=== PATIENT | female | born 1965 | race Caucasian/White ===

== ENCOUNTER 2022-03-19 14:57 | Inpatient (IN) | payer MEDICAID ==
[~2022-03-19] VITALS: Ht 154.9 cm; Wt 100.0 kg
[~2022-03-19 14:57] MED LIST: amiodarone 50MG/ML inj IV ONE
[2022-03-19] MEDS ORDERED: ringers solution, lacted 1,000 ML IV ONE (15:20)
[2022-03-19 15:42] LABS: BASOPHILS % (AUTO) 0.3 % (0-1); EOSINOPHILS % (AUTO) 0.2 % (0-6); HEMATOCRIT 42.9 % (35.0-45.0); HEMOGLOBIN 13.8 g/dl (12.0-16.0); LYMPHOCYTES # (AUTO) 2.1 X10'3 (1.1-4.8); LYMPHOCYTES % (AUTO) 23.3 % (21-51); MEAN CORPUSCULAR HEMOGLOBIN 27.9 PG (27.0-31.0); MEAN CORPUSCULAR HGB CONC 32.1 g/dL (33.0-36.5); MEAN CORPUSCULAR VOLUME 86.7 FL (78-98); MEAN PLATELET VOLUME 9.8 FL (7.4-10.4); MONOCYTES # (AUTO) 0.6 X10'3 (0-0.9); MONOCYTES % (AUTO) 6.8 % (2-12); NEUTROPHILS # (AUTO) 6.2 X10'3 (1.8-7.7); NEUTROPHILS % (AUTO) 69.4 % (42-75); PLATELET COUNT 179 X10'3 (140-440); RED BLOOD COUNT 4.95 X10'6 (4.20-5.60); RED CELL DISTRIBUTION WIDTH 13.5 % (11.5-14.5)
[2022-03-19 15:45] LABS: APTT 24 SECONDS (22-32); D-DIMER 0.26 MG/L FEU (0-0.50)
[2022-03-19 15:48] LABS: ALANINE AMINOTRANSFERASE 63 U/L (12-78); ALBUMIN 3.9 G/DL (3.4-5.0); ALBUMIN/GLOBULIN RATIO 1.1 (1.1-1.5); ALKALINE PHOSPHATASE 70 IU/L (46-116); ANION GAP 11 (8-16); ASPARTATE AMINO TRANSFERASE 25 U/L (10-37); BILIRUBIN,TOTAL 0.6 MG/DL (0.1-1.0); BLOOD UREA NITROGEN 15 MG/DL (7-18); BUN/CREATININE RATIO 18.1 (6.6-38.0); CALCIUM 8.9 MG/DL (8.5-10.1); CHLORIDE 100 MMOL/L (99-107); CREATININE 0.83 MG/DL (0.40-0.90); GLUCOSE 333 MG/DL (70-104); POTASSIUM 3.9 MMOL/L (3.5-5.1); SODIUM 137 MMOL/L (135-145); TOTAL CARBON DIOXIDE 26.5 MMOL/L (24-32); TOTAL PROTEIN 7.4 G/DL (6.4-8.2); eGFR 71 ML/MIN
[2022-03-19 15:58] LABS: MAGNESIUM 1.7 MG/DL (1.5-2.4)
[2022-03-19] MEDS ORDERED: diltiazem 5mg/ml 5ml inj. IV ONE (16:15)
[2022-03-19] MEDS ORDERED: diltiazem 30mg tablet PO ONE (17:15)
[2022-03-19] MEDS ORDERED: mag hydrox/Alum hydrox/simeth 30ml oral suspension PO PRN (17:40)
[2022-03-19] MEDS ORDERED: acetaminophen 325mg tablet PO PRN (17:40)
[2022-03-19] MEDS ORDERED: magnesium hydroxide 30ml (MOM) UD suspension PO PRN (17:40)
[2022-03-19] MEDS ORDERED: potassium Cl 20 mEq SR tablet PO PRN ×2 (17:40)
[2022-03-19] MEDS ORDERED: magnesium Cl slow-release 64mg tablet PO PRN (17:40)
[2022-03-19] MEDS ORDERED: PERFLUTREN PROTEIN-A MICROSPHR (Optison) 0.22 MG/ML 3ML VIAL IV ONE (17:40)
[2022-03-19] MEDS ORDERED: ondansetron/PF 4mg/2ml inj IV PRN (17:40)
[2022-03-19] MEDS ORDERED: magnesium 4gm in 100ml NS 100 ML IV PRN (17:40)
[2022-03-19] MEDS ORDERED: potassium Cl 40MEQ/1/2NS 520ml 520 ML IV PRN (17:40)
[2022-03-19] MEDS ORDERED: ASPI-1265 PO (17:52)
[2022-03-19] MEDS ORDERED: MULT-1085 PO (17:52)
[2022-03-19] MEDS: diltiazem-NS 100mg/100ml 100 ML IV SCH (18:00)
[2022-03-19] MEDS: normal saline 1000ml 1,000 ML IV SCH (18:00)
[2022-03-19 18:21] LABS: CLARITY,URINE SLIGHTLY CLOUDY (Clear); COLOR,URINE YELLOW (Yellow); GLUCOSE, URINE >=1000 mg/dl (Neg); KETONES,URINE 40 mg/dl (Neg); LEUKOCYTE ESTERASE ,URINE NEGATIVE (Neg); NITRITES, URINE NEGATIVE (Neg); OCCULT BLOOD,URINE NEGATIVE (Neg); PH,URINE 5.5 (4.8-8.0); PROTEIN,URINE NEGATIVE (Neg); UROBILINOGEN,URINE 0.2 E.U/dL (0.2-1.0)
[2022-03-19 18:30] LABS: UA COLLECTION TYPE CLN CATCH MIDSTREAM
[2022-03-19 18:32] LABS: BACTERIA,URINE FEW /HPF (Neg); MUCUS STRANDS FEW /LPF (Neg); SQUAMOUS EPITHELIAL CELL,UR FEW /LPF (FEW)
[2022-03-19 18:33] LABS: TRANSITIONAL EPI CELLS,URINE FEW /HPF; URINE AMPHETAMINE SCREEN NEGATIVE (Neg); URINE BARBITUATE SCREEN NEGATIVE (Neg); URINE BENZODIAZEPINES SCREEN NEGATIVE (Neg); URINE CANNABINOID SCREEN POSITIVE (Neg); URINE COCAINE SCREEN NEGATIVE (Neg); URINE METHADONE SCREEN NEGATIVE (Neg); URINE OPIATE SCREEN NEGATIVE (Neg); URINE PHENCYCLIDINE SCREEN NEGATIVE (Neg); YEAST FEW /HPF (NEGATIVE)
[2022-03-19] MEDS: K and/or MAG REPLACEMENT MC SCH (19:45)
[2022-03-19] MEDS ORDERED: apixaban 5mg tablet PO SCH (20:00)
[2022-03-19] MEDS: docusate sod 100mg capsule PO SCH (20:00)
[2022-03-19] MEDS: enoxaparin 100mg/ml syringe SUBCUT SCH (20:21)
[2022-03-20] VITALS (16 sets, daily range): BP systolic 93–145; BP diastolic 50–79
[2022-03-20 02:59] LABS: BASOPHILS # (AUTO) 0.1 X10'3 (0-0.2); BASOPHILS % (AUTO) 0.9 % (0-1); EOSINOPHILS % (AUTO) 0.6 % (0-6); HEMOGLOBIN 11.8 g/dl (12.0-16.0); LYMPHOCYTES # (AUTO) 2.3 X10'3 (1.1-4.8); LYMPHOCYTES % (AUTO) 28.9 % (21-51); MEAN CORPUSCULAR HGB CONC 33.6 g/dL (33.0-36.5); MEAN CORPUSCULAR VOLUME 86.3 FL (78-98); MEAN PLATELET VOLUME 9.3 FL (7.4-10.4); MONOCYTES # (AUTO) 0.6 X10'3 (0-0.9); MONOCYTES % (AUTO) 7.8 % (2-12); NEUTROPHILS # (AUTO) 4.8 X10'3 (1.8-7.7); NEUTROPHILS % (AUTO) 61.8 % (42-75); PLATELET COUNT 158 X10'3 (140-440); RED BLOOD COUNT 4.06 X10'6 (4.20-5.60); RED CELL DISTRIBUTION WIDTH 13.6 % (11.5-14.5); WHITE BLOOD COUNT 7.8 X10'3 (4.5-11.0)
[2022-03-20 03:10] LABS: ALBUMIN 2.9 G/DL (3.4-5.0); ANION GAP 8 (8-16); BLOOD UREA NITROGEN 10 MG/DL (7-18); BUN/CREATININE RATIO 15.9 (6.6-38.0); CALCIUM 7.9 MG/DL (8.5-10.1); CHLORIDE 106 MMOL/L (99-107); CREATININE 0.63 MG/DL (0.40-0.90); GLUCOSE 232 MG/DL (70-104); MAGNESIUM 1.6 MG/DL (1.5-2.4); SODIUM 141 MMOL/L (135-145); TOTAL CARBON DIOXIDE 26.6 MMOL/L (24-32); eGFR > 90 ML/MIN
[2022-03-20] MEDS: normal saline 1000ml 1,000 ML IV SCH ×3 (03:58→21:08)
[2022-03-20] MEDS: K and/or MAG REPLACEMENT MC SCH ×2 (08:00→19:55)
[2022-03-20] MEDS: docusate sod 100mg capsule PO SCH ×2 (08:00→20:02)
[2022-03-20] MEDS: enoxaparin 100mg/ml syringe SUBCUT SCH ×2 (08:19→19:58)
[2022-03-20] MEDS ORDERED: regadenoson 0.4mg/5ml syringe IV PRN (08:40)
[2022-03-20] MEDS ORDERED: nitroGLYCERIN 0.4mg SUBLingual tab SL PRN (08:40)
[2022-03-20] MEDS ORDERED: metoprolol tartrate 1mg/ml inj IV PRN (08:40)
[2022-03-20] MEDS ORDERED: aminophylline 500mg/20ml vial IV PRN (08:40)
--- NOTE | 2022-03-20 11:24 | NUR ---
Nutrition consult regarding pt wt loss: Pt has hx of gastric bypass. She states she had a RYGB about 15 years ago. She eats smaller more frequent meals now, which is what is recommend for gastric bypass. She mentions that her wt loss stalled a bit the last couple of years though she started to lose wt again this past year. She states that she eats fine and feels great. No concern for malnutrition at this time. D/W RN recommendation for MVI if MD agreeable. Addendum: 03/20/22 at [address] Amended: Links added.
[2022-03-20] MEDS ORDERED: diltiazem 30mg tablet PO ONE (11:40)
[2022-03-20] MEDS ORDERED: furosemide 40mg/4ml inj IV ONE (11:45)
[2022-03-20 11:50] LABS: HEMOGLOBIN A1C 11.4 % (4.5-6.2)
--- NOTE | 2022-03-20 12:46 | NUR ---
mariela GARG paged with elevated troponin [id number]
--- NOTE | 2022-03-20 13:06 | NUR ---
Noted pt w/ hx of DM A1c 11.4 per EMR. Provided pt w/ written and verbal DM ed w/ RD contact info. Addendum: 03/20/22 at [address] Amended: Links added.
[2022-03-20] MEDS: diltiazem-NS 100mg/100ml 100 ML IV SCH ×2 (13:30→21:09)
[2022-03-20] MEDS ORDERED: diltiazem 30mg tablet PO SCH (14:00)
[2022-03-20] MEDS ORDERED: fentaNYL/PF 50MCG/1 ML 2ML syringe ONE (14:12)
[2022-03-20] MEDS ORDERED: verapamil 2.5 mg/ml inj IV ONE ×2 (14:12→15:09)
[2022-03-20] MEDS ORDERED: midazolam 1 mg/ML 2ml injection ONE ×2 (14:12→15:26)
[2022-03-20] MEDS ORDERED: nitroGLYCERIN-Tridil 50MG/D5W 250 ML IV ONE (14:12)
[2022-03-20] MEDS ORDERED: LIDOcaine 1% (10mg/ml) 2ml vial ONE (14:13)
[2022-03-20] MEDS ORDERED: heparin 1,000unit/ml 10ml vial 10 ML ONE (14:13)
[2022-03-20] MEDS ORDERED: iohexol 350MG/ML 100ml bottle IV ONE ×2 (14:13→15:14)
[2022-03-20] MEDS ORDERED: iohexol 350 MG/ML 50ML vial IV ONE ×2 (14:13→16:10)
[2022-03-20] MEDS ORDERED: metoprolol tartrate 1mg/ml inj IV ONE (15:06)
[2022-03-20] MEDS ORDERED: HEPARIN SOD,PORK IN 0.45% NACL 250 ML IV ONE (15:17)
[2022-03-20] MEDS ORDERED: LIDOcaine 1% 30ml preserv. free vial ONE (15:26)
[2022-03-20] MEDS ORDERED: clopidogrel 300mg tablet ONE (16:18)
[2022-03-20] MEDS ORDERED: normal saline 1000ml 1,000 ML IV SCH (17:30)
[2022-03-20] MEDS ORDERED: heparin 10,000 units/1 ML INJ IV PRN (17:55)
[2022-03-20] MEDS ORDERED: heparin 25,000 UNIT/250ml bag 250 ML IV PRN (17:55)
[2022-03-20] MEDS ORDERED: heparin 10,000 units/1 ML INJ IV ONE (17:55)
[2022-03-20] MEDS: aspirin 81mg tab.chew PO SCH (19:20)
[2022-03-20] MEDS: carVEDilol 12.5mg tablet PO SCH (20:02)
[2022-03-20] MEDS ORDERED: MESSAGE TO PHARMACY PO ONE (21:40)
[2022-03-20] MEDS ORDERED: glucagon, human recombinant 1mg kit SUBCUT PRN (21:40)
[2022-03-20] MEDS ORDERED: dextrose 50%-water 50ml dispensing syringe IV PRN ×2 (21:40)
[2022-03-20] MEDS ORDERED: DEXTROSE 15 GM of carb/4 tabs (each vial/BOTTLE has 4 tablets) PO PRN ×2 (21:40)
[2022-03-20] MEDS: insulin Lispro (HumaLOG) vial - multi-dose SQ SCH (21:44)
[2022-03-20] MEDS: insulin glargine (Lantus) pen - multi-dose SQ SCH (21:45)
[2022-03-21] VITALS (8 sets, daily range): BP systolic 93–146; BP diastolic 41–62
[2022-03-21] MEDS ORDERED: morphine 2 MG/ML inj. syringe IV PRN (00:25)
[2022-03-21] MEDS ORDERED: HYDROcodone/acetaminophen 5mg/325mg tablet PO PRN (00:25)
[2022-03-21 06:46] LABS: BASOPHILS % (AUTO) 0.5 % (0-1); EOSINOPHILS % (AUTO) 0.4 % (0-6); HEMATOCRIT 32.4 % (35.0-45.0); HEMOGLOBIN 10.9 g/dl (12.0-16.0); LYMPHOCYTES # (AUTO) 1.4 X10'3 (1.1-4.8); LYMPHOCYTES % (AUTO) 18.2 % (21-51); MEAN CORPUSCULAR HEMOGLOBIN 28.9 PG (27.0-31.0); MEAN CORPUSCULAR HGB CONC 33.5 g/dL (33.0-36.5); MEAN CORPUSCULAR VOLUME 86.1 FL (78-98); MEAN PLATELET VOLUME 9.1 FL (7.4-10.4); MONOCYTES # (AUTO) 0.7 X10'3 (0-0.9); MONOCYTES % (AUTO) 8.6 % (2-12); NEUTROPHILS # (AUTO) 5.7 X10'3 (1.8-7.7); NEUTROPHILS % (AUTO) 72.3 % (42-75); PLATELET COUNT 143 X10'3 (140-440); RED BLOOD COUNT 3.77 X10'6 (4.20-5.60); RED CELL DISTRIBUTION WIDTH 13.3 % (11.5-14.5); WHITE BLOOD COUNT 7.9 X10'3 (4.5-11.0)
[2022-03-21 06:48] LABS: APTT 28 SECONDS (22-32)
[2022-03-21 07:21] LABS: ALBUMIN 2.7 G/DL (3.4-5.0); ANION GAP 9 (8-16); BLOOD UREA NITROGEN 8 MG/DL (7-18); CALCIUM 7.9 MG/DL (8.5-10.1); CHLORIDE 105 MMOL/L (99-107); CHOL/HDL RATIO 4.2 (0.00-4.99); CHOLESTEROL 131 MG/DL (0-200); CREATININE 0.57 MG/DL (0.40-0.90); GLUCOSE 218 MG/DL (70-104); HDL CHOLESTEROL 31 MG/DL (35-60); LDL CHOLESTEROL 89 MG/DL (50-100); MAGNESIUM 1.5 MG/DL (1.5-2.4); POTASSIUM 3.5 MMOL/L (3.5-5.1); SODIUM 137 MMOL/L (135-145); TOTAL CARBON DIOXIDE 22.7 MMOL/L (24-32); TRIGLYCERIDES 92 MG/DL (20-135); eGFR > 90 ML/MIN
[2022-03-21] MEDS ORDERED: metoprolol succinate 25mg (24-HOUR) SR. Tablet PO SCH (08:00)
[2022-03-21] MEDS ORDERED: aspirin 81mg tab.chew PO SCH (08:00)
[2022-03-21] MEDS: K and/or MAG REPLACEMENT MC SCH ×2 (08:00→19:48)
[2022-03-21] MEDS ORDERED: lisinopril 5mg tablet PO SCH (08:00)
[2022-03-21] MEDS: aspirin 81mg tab.chew PO SCH (08:31)
[2022-03-21] MEDS: clopidogrel 75mg tablet PO SCH (08:32)
[2022-03-21] MEDS: apixaban 5mg tablet PO SCH ×2 (08:32→19:56)
[2022-03-21] MEDS: carVEDilol 12.5mg tablet PO SCH ×2 (08:34→19:56)
[2022-03-21] MEDS: atorvastatin 20mg tablet PO SCH (08:34)
[2022-03-21] MEDS: multivitamins, therapeutics tablet PO SCH (08:34)
[2022-03-21] MEDS: docusate sod 100mg capsule PO SCH ×2 (08:35→19:45)
[2022-03-21] MEDS: insulin Lispro (HumaLOG) vial - multi-dose SQ SCH ×3 (08:48→20:27)
[2022-03-21] MEDS: normal saline 1000ml 1,000 ML IV SCH ×2 (10:11→19:55)
[2022-03-21] MEDS ORDERED: digoxin 250mcg/ml 2ml ampule IV ONE ×2 (13:25→17:00)
--- NOTE | 2022-03-21 18:28 | NUR ---
Patient report given, questions answered & plan of care reviewed with Compa DECKER.
[2022-03-21] MEDS: carvedilol 6.25mg tablet PO SCH (19:55)
[2022-03-21] MEDS: insulin glargine (Lantus) pen - multi-dose SQ SCH (21:52)
[2022-03-22] VITALS (17 sets, daily range): BP systolic 83–143; BP diastolic 44–76
[2022-03-22] MEDS: normal saline 1000ml 1,000 ML IV SCH ×3 (05:54→23:43)
[2022-03-22 07:35] LABS: BASOPHILS % (AUTO) 0.2 % (0-1); EOSINOPHILS % (AUTO) 0.4 % (0-6); HEMATOCRIT 31.6 % (35.0-45.0); HEMOGLOBIN 10.6 g/dl (12.0-16.0); LYMPHOCYTES # (AUTO) 1.5 X10'3 (1.1-4.8); LYMPHOCYTES % (AUTO) 19.6 % (21-51); MEAN CORPUSCULAR HEMOGLOBIN 28.8 PG (27.0-31.0); MEAN CORPUSCULAR HGB CONC 33.4 g/dL (33.0-36.5); MEAN CORPUSCULAR VOLUME 86.2 FL (78-98); MEAN PLATELET VOLUME 8.9 FL (7.4-10.4); MONOCYTES # (AUTO) 0.7 X10'3 (0-0.9); MONOCYTES % (AUTO) 9.5 % (2-12); NEUTROPHILS # (AUTO) 5.2 X10'3 (1.8-7.7); NEUTROPHILS % (AUTO) 70.3 % (42-75); PLATELET COUNT 128 X10'3 (140-440); RED BLOOD COUNT 3.66 X10'6 (4.20-5.60); RED CELL DISTRIBUTION WIDTH 13.5 % (11.5-14.5); WHITE BLOOD COUNT 7.5 X10'3 (4.5-11.0)
[2022-03-22 07:55] LABS: ALBUMIN 2.4 G/DL (3.4-5.0); ANION GAP 6 (8-16); BLOOD UREA NITROGEN 7 MG/DL (7-18); BUN/CREATININE RATIO 11.9 (6.6-38.0); CALCIUM 7.8 MG/DL (8.5-10.1); CHLORIDE 108 MMOL/L (99-107); CREATININE 0.59 MG/DL (0.40-0.90); GLUCOSE 145 MG/DL (70-104); MAGNESIUM 1.6 MG/DL (1.5-2.4); POTASSIUM 3.3 MMOL/L (3.5-5.1); SODIUM 139 MMOL/L (135-145); TOTAL CARBON DIOXIDE 24.6 MMOL/L (24-32); eGFR > 90 ML/MIN
[2022-03-22] MEDS: docusate sod 100mg capsule PO SCH ×2 (08:00→19:37)
[2022-03-22] MEDS: K and/or MAG REPLACEMENT MC SCH ×2 (08:00→20:06)
[2022-03-22] MEDS: multivitamins, therapeutics tablet PO SCH (11:16)
[2022-03-22] MEDS: aspirin 81mg tab.chew PO SCH (11:16)
[2022-03-22] MEDS: apixaban 5mg tablet PO SCH ×2 (11:17→19:37)
[2022-03-22] MEDS: lisinopril 2.5mg tablet PO SCH (11:17)
[2022-03-22] MEDS: carVEDilol 12.5mg tablet PO SCH (11:18)
[2022-03-22] MEDS: carvedilol 6.25mg tablet PO SCH (11:18)
[2022-03-22] MEDS: atorvastatin 20mg tablet PO SCH (11:18)
[2022-03-22] MEDS: clopidogrel 75mg tablet PO SCH (11:19)
[2022-03-22] MEDS: insulin Lispro (HumaLOG) vial - multi-dose SQ SCH ×2 (13:53→19:41)
[2022-03-22] MEDS ORDERED: MIDAZolam 1mg/ml 10ml vial IV ONE (16:05)
[2022-03-22] MEDS ORDERED: morphine 10mg/ml inj. IV ONE (16:05)
[2022-03-22] MEDS ORDERED: amiodarone 50MG/ML inj IV ONE (16:20)
--- NOTE | 2022-03-22 17:10 | NUR ---
procedure done in pt room Addendum: 03/22/22 at 1714 by Mario Lucio RN Amended: Links added.
[2022-03-22] MEDS ORDERED: sotalol 80mg tablet PO ONE (17:38)
[2022-03-22] MEDS ORDERED: ROSUVASTATIN CALCIUM 5 MG TABLET PO SCH (20:35)
[2022-03-22] MEDS: insulin glargine (Lantus) pen - multi-dose SQ SCH (22:45)
[2022-03-22] MEDS ORDERED: magnesium 4gm in 100ml NS 100 ML IV PRN (23:10)
[2022-03-22] MEDS ORDERED: potassium Cl 40MEQ/1/2NS 520ml 520 ML IV PRN (23:10)
[2022-03-22] MEDS ORDERED: potassium Cl 20 mEq SR tablet PO PRN (23:10)
[2022-03-22] MEDS ORDERED: magnesium Cl slow-release 64mg tablet PO PRN (23:10)
[2022-03-22] MEDS: potassium Cl 20 mEq SR tablet PO PRN (23:40)
[2022-03-23 02:46] VITALS: BP 109/54
[2022-03-23] MEDS: potassium Cl 20 mEq SR tablet PO PRN (04:21)
[2022-03-23 06:00] VITALS: BP 117/57
--- NOTE | 2022-03-23 07:01 | NUR ---
Patient in room PCU 3018. I have received report from JERONIMO GRAMAJO, and had the opportunity to ask questions and assume patient care.
[2022-03-23 07:19] LABS: ALBUMIN 2.5 G/DL (3.4-5.0); ANION GAP 9 (8-16); BLOOD UREA NITROGEN 11 MG/DL (7-18); BUN/CREATININE RATIO 18.3 (6.6-38.0); CALCIUM 8.2 MG/DL (8.5-10.1); CHLORIDE 109 MMOL/L (99-107); GLUCOSE 156 MG/DL (70-104); MAGNESIUM 1.5 MG/DL (1.5-2.4); POTASSIUM 3.8 MMOL/L (3.5-5.1); SODIUM 142 MMOL/L (135-145); TOTAL CARBON DIOXIDE 24.5 MMOL/L (24-32); eGFR > 90 ML/MIN
[2022-03-23 07:52] LABS: BASOPHILS % (AUTO) 0.3 % (0-1); EOSINOPHILS # (AUTO) 0.1 X10'3 (0-0.9); EOSINOPHILS % (AUTO) 1.2 % (0-6); HEMOGLOBIN 10.3 g/dl (12.0-16.0); LYMPHOCYTES # (AUTO) 1.5 X10'3 (1.1-4.8); MEAN CORPUSCULAR HEMOGLOBIN 28.8 PG (27.0-31.0); MEAN CORPUSCULAR HGB CONC 33.2 g/dL (33.0-36.5); MEAN CORPUSCULAR VOLUME 86.8 FL (78-98); MEAN PLATELET VOLUME 9.4 FL (7.4-10.4); MONOCYTES # (AUTO) 0.7 X10'3 (0-0.9); MONOCYTES % (AUTO) 8.8 % (2-12); NEUTROPHILS # (AUTO) 5.1 X10'3 (1.8-7.7); NEUTROPHILS % (AUTO) 68.7 % (42-75); PLATELET COUNT 138 X10'3 (140-440); RED BLOOD COUNT 3.57 X10'6 (4.20-5.60); RED CELL DISTRIBUTION WIDTH 13.7 % (11.5-14.5); WHITE BLOOD COUNT 7.4 X10'3 (4.5-11.0)
[2022-03-23] MEDS: insulin Lispro (HumaLOG) vial - multi-dose SQ SCH ×3 (08:50→19:39)
[2022-03-23] MEDS: docusate sod 100mg capsule PO SCH ×2 (08:51→19:30)
[2022-03-23] MEDS: clopidogrel 75mg tablet PO SCH (08:52)
[2022-03-23] MEDS: aspirin 81mg tab.chew PO SCH (08:52)
[2022-03-23] MEDS: sotalol 80mg tablet PO SCH ×2 (08:52→19:35)
[2022-03-23] MEDS: lisinopril 2.5mg tablet PO SCH (08:52)
[2022-03-23] MEDS: multivitamins, therapeutics tablet PO SCH (08:52)
[2022-03-23] MEDS: apixaban 5mg tablet PO SCH ×2 (08:53→19:35)
[2022-03-23] MEDS: atorvastatin 20mg tablet PO SCH (08:53)
[2022-03-23] MEDS: K and/or MAG REPLACEMENT MC SCH ×4 (08:54→19:31)
[2022-03-23 11:00] VITALS: BP 111/53
[2022-03-23] MEDS: CefTRIAXone/D5W-Rocephin 1gm 50 ML IV SCH (13:24)
[2022-03-23 15:49] VITALS: BP 108/51
[2022-03-23 18:00] VITALS: BP 127/60
--- NOTE | 2022-03-23 18:08 | NUR ---
Problems reprioritized. Patient report given, questions answered & plan of care reviewed with JERONIMO GRAMAJO.
[2022-03-23] MEDS: normal saline 1000ml 1,000 ML IV SCH ×2 (19:35→21:51)
[2022-03-23] MEDS: insulin glargine (Lantus) pen - multi-dose SQ SCH (21:54)
[2022-03-23 22:37] VITALS: BP 115/40
[2022-03-24 02:54] VITALS: BP 120/55
[2022-03-24 06:00] VITALS: BP 136/69
--- NOTE | 2022-03-24 06:45 | NUR ---
Patient in room PCU 3018. I have received report from JERONIMO GRAMAJO, and had the opportunity to ask questions and assume patient care.
[2022-03-24 07:21] LABS: BASOPHILS % (AUTO) 0.3 % (0-1); EOSINOPHILS # (AUTO) 0.1 X10'3 (0-0.9); EOSINOPHILS % (AUTO) 1.3 % (0-6); LYMPHOCYTES # (AUTO) 1.6 X10'3 (1.1-4.8); LYMPHOCYTES % (AUTO) 20.8 % (21-51); MEAN CORPUSCULAR HEMOGLOBIN 28.3 PG (27.0-31.0); MEAN CORPUSCULAR HGB CONC 32.3 g/dL (33.0-36.5); MEAN CORPUSCULAR VOLUME 87.6 FL (78-98); MEAN PLATELET VOLUME 9.5 FL (7.4-10.4); MONOCYTES # (AUTO) 0.6 X10'3 (0-0.9); MONOCYTES % (AUTO) 8.1 % (2-12); NEUTROPHILS # (AUTO) 5.2 X10'3 (1.8-7.7); NEUTROPHILS % (AUTO) 69.5 % (42-75); PLATELET COUNT 156 X10'3 (140-440); RED BLOOD COUNT 3.54 X10'6 (4.20-5.60); RED CELL DISTRIBUTION WIDTH 13.8 % (11.5-14.5); WHITE BLOOD COUNT 7.5 X10'3 (4.5-11.0)
[2022-03-24 07:22] LABS: ALBUMIN 2.5 G/DL (3.4-5.0); ANION GAP 8 (8-16); BLOOD UREA NITROGEN 11 MG/DL (7-18); CALCIUM 8.2 MG/DL (8.5-10.1); CHLORIDE 108 MMOL/L (99-107); CREATININE 0.58 MG/DL (0.40-0.90); GLUCOSE 117 MG/DL (70-104); MAGNESIUM 1.5 MG/DL (1.5-2.4); POTASSIUM 3.6 MMOL/L (3.5-5.1); SODIUM 140 MMOL/L (135-145); TOTAL CARBON DIOXIDE 24.4 MMOL/L (24-32); eGFR > 90 ML/MIN
--- NOTE | 2022-03-24 07:49 | NUR ---
Initial: pt admitted w/ Afib and NSTEMI per EMR. Currently on Carb control diet w/ avg intake 60% of meals which meets approximately 84% of est energy needs and 100% of est protein needs. LBM 03/23. No nutrition intervention implemented at this time, will continue to monitor. Recs; 1. Continue Carb control diet as tolerated 2. Monitor need for ONS 3. Routine MVI given gastric bypass hx 4. Bowel care per rx 5. Scaled wts Addendum: 03/24/22 at [address] Amended: Links added.
[2022-03-24] MEDS: CefTRIAXone/D5W-Rocephin 1gm 50 ML IV SCH (07:50)
[2022-03-24] MEDS: sotalol 80mg tablet PO SCH (07:52)
[2022-03-24] MEDS: clopidogrel 75mg tablet PO SCH (07:52)
[2022-03-24] MEDS: docusate sod 100mg capsule PO SCH (07:52)
[2022-03-24] MEDS: aspirin 81mg tab.chew PO SCH (07:52)
[2022-03-24] MEDS: atorvastatin 20mg tablet PO SCH (07:52)
[2022-03-24] MEDS: apixaban 5mg tablet PO SCH (07:53)
[2022-03-24] MEDS: multivitamins, therapeutics tablet PO SCH (07:53)
[2022-03-24] MEDS: lisinopril 2.5mg tablet PO SCH (07:54)
[2022-03-24] MEDS: insulin Lispro (HumaLOG) vial - multi-dose SQ SCH ×2 (09:35→13:35)
[2022-03-24 11:38] VITALS: BP 139/62
[2022-03-24] MEDS ORDERED: SOTA80TA73 PO (13:52)
[2022-03-24] MEDS ORDERED: EMPA10TA PO (13:52)
[2022-03-24] MEDS ORDERED: CLOP75TA34 PO (13:52)
[2022-03-24] MEDS ORDERED: METF-1203 PO (13:52)
[2022-03-24] MEDS ORDERED: ATOR20TA66 PO (13:52)
[2022-03-24] MEDS ORDERED: LISI2.5T14 PO (13:52)
[2022-03-24] MEDS ORDERED: CEFD300C3 PO (13:52)
[2022-03-24] MEDS ORDERED: LACT1CAP26 PO (13:52)
[2022-03-24] MEDS ORDERED: APIX5TAB3 PO (13:52)
[2022-03-24] MEDS ORDERED: LANTUS SQ (13:52)
[2022-03-24] MEDS ORDERED: AMA1T PO (13:52)
--- NOTE | 2022-03-24 15:23 | NUR ---
PT STABLE FOR DISCHARGE PER MD. DISCHARGE AND FOLLOW UP INSTRUCTIONS REVIEWED WITH PT. APPROPRIATE PAPERWORK SIGNED. BELONGINGS RETURNED TO PT. DM EDUCATION PROVIDED. TELE BOX REMOVED. PIV REMOVED WITH TIP INTACT. PT TRANSFERRED TO PRIVATE VEHICLE BY HOSPITAL STAFF. PT DISCHARGED TO HOME. GLUCOMETER, LANCETS, STRIP AND INSULIN [facility]YRING[facility]
== END 2022-03-24 15:19 | disposition home or self-care (01) | DRG 174 ==
LOC: ER 14:59 → ED HOLD 17:43 → PCU 3S 03-20 09:34
PROVIDERS: ADMIT Family Medicine; ATTEND Family Medicine
PROC: 027034Z Dilation of Coronary Artery, One Artery with Drug-eluting Intraluminal Device, Percutaneous Approach (ICD-10-PCS; principal; 2022-03-20)
PROC: 4A023N7 Measurement of Cardiac Sampling and Pressure, Left Heart, Percutaneous Approach (ICD-10-PCS; 2022-03-20)
PROC: B2111ZZ Fluoroscopy of Multiple Coronary Arteries using Low Osmolar Contrast (ICD-10-PCS; 2022-03-20)
PROC: 02JA3ZZ Inspection of Heart, Percutaneous Approach (ICD-10-PCS; 2022-03-20)
PROC: B2151ZZ Fluoroscopy of Left Heart using Low Osmolar Contrast (ICD-10-PCS; 2022-03-20)
PROC: 5A2204Z Restoration of Cardiac Rhythm, Single (ICD-10-PCS; 2022-03-22)
PROC: B24BZZ4 Ultrasonography of Heart with Aorta, Transesophageal (ICD-10-PCS; 2022-03-22)
DX: I21.4 Non-ST elevation (NSTEMI) myocardial infarction (principal); E11.9 Type 2 diabetes mellitus without complications; E66.01 Morbid (severe) obesity due to excess calories; Z68.41 Body mass index [BMI] 40.0-44.9, adult; I48.91 Unspecified atrial fibrillation; R79.89 Other specified abnormal findings of blood chemistry; N39.0 Urinary tract infection, site not specified; Z98.84 Bariatric surgery status; Z88.0 Allergy status to penicillin; Z90.49 Acquired absence of other specified parts of digestive tract; Z79.899 Other long term (current) drug therapy; Y92.230 Patient room in hospital as the place of occurrence of the external cause; Z79.82 Long term (current) use of aspirin; S30.1XXA Contusion of abdominal wall, initial encounter; X58.XXXA Exposure to other specified factors, initial encounter; Y93.89 Activity, other specified; Y99.8 Other external cause status
CPT/HCPCS: 36415; 71045; 76937; 80048; 80053; 80061; 80305; 81001; 82948; 83036; 83735; 83880; 84100; 84439; 84443; 84484; 85025; 85347; 85379; 85610; 85730; 87081; 87088; 93005; 93306; 93312; 93458; 94760; 96374; 96375; 99152; 99153; 99285; A4620; A6258; A6449; C1725; C1751; C1769; C1874; C1894; C9600; G0378; J0282; J0696; J1160; J1644; J1650; J1815; J2250; J2270; J2274; J3010; J3490; J7030; J7120; Q9967

== ENCOUNTER 2022-04-17 02:07 | Emergency (ER) | payer MEDICAID ==
[~2022-04-17] VITALS: Ht 157.5 cm; Wt 96.4 kg
[~2022-04-17 02:07] MED LIST changes: +AMA1T PO; +APIX5TAB3 PO; +ASPI-1265 PO; +ATOR20TA66 PO; +CEFD300C3 PO; +CLOP75TA34 PO; +EMPA10TA PO; +LACT1CAP26 PO; +LANTUS SQ; +LISI2.5T14 PO; +METF-1203 PO; +MULT-1085 PO; +SOTA80TA73 PO; -amiodarone 50MG/ML inj IV ONE
[2022-04-17 02:13] VITALS: BP 168/48
== END 2022-04-17 05:12 | disposition left against medical advice (07) ==
LOC: ER 02:08
DX: M79.651 Pain in right thigh (principal); Z53.21 Procedure and treatment not carried out due to patient leaving prior to being seen by health care provider

== ENCOUNTER 2023-08-04 12:24 | Outpatient (CLI) | payer MEDICAID ==
[~2023-08-04 12:24] MED LIST changes: -AMA1T PO; -CEFD300C3 PO; -LANTUS SQ; -METF-1203 PO
== END 2023-08-04 23:59 | disposition home or self-care (01) ==
LOC: RAD 12:24
PROVIDERS: ATTEND Family Medicine
DX: J90 Pleural effusion, not elsewhere classified (principal); J98.4 Other disorders of lung; R05.9 Cough, unspecified
CPT/HCPCS: 71046

== ENCOUNTER 2024-12-06 21:02 | Emergency (ER) | payer MEDICAID ==
[~2024-12-06] VITALS: Ht 157.5 cm; Wt 96.4 kg
[2024-12-06 21:12] VITALS: BP 134/64; PULSE 55; RESP 18; TEMP 96.8; O2SAT 99
[2024-12-06] MEDS: HYDROcodone/acetaminophen 10/325mg tab PO STA (22:06)
--- NOTE | 2024-12-06 22:09 | RADIOLOGY REPORT ---
EXAM: DI KNEE, COMP 4 VW MIN INDICATION: KNEE PAIN LEFT TECHNIQUE: 4 radiographic views of the left knee were obtained. COMPARISON: None FINDINGS/IMPRESSION: No acute fracture or dislocations. Mild degenerative changes. Moderate joint effusion. Moderate diffuse soft tissue edema. Extensive vascular atherosclerosis. No radiographic foreign body.
== END 2024-12-07 00:42 | disposition left against medical advice (07) ==
LOC: ER 21:03
DX: M25.562 Pain in left knee (principal); Z53.21 Procedure and treatment not carried out due to patient leaving prior to being seen by health care provider
CPT/HCPCS: 73564